=== PATIENT | male | born 1990 | race Caucasian/White ===

== ENCOUNTER 2019-02-27 08:36 | Emergency (ER) | payer OTHER ==
[~2019-02-27] VITALS: Ht 172.7 cm; Wt 63.5 kg
--- NOTE | 2019-02-27 08:43 | NUR ---
Pt ambulated to bed 3.
--- NOTE | 2019-02-27 08:45 | NUR ---
ONE WEEK PTC PT NOTICE BURNING SENSATION UPON URINATING ,DENIES URETHRAL DISCHARGE .NO CONSULT NOR MEDS TAKEN.PT IS AWAKE , ALERT ,AFEBRILE , ABDOMEN SOFT NORMO ACTIVE BS, NO TENDERNESS NOTED. AMBULATORY WITH STEADY GAIT.DENIES HX PREVIOUS ILLNESS NOR MEDS TAKEN.
[2019-02-27 08:47] VITALS: BP 139/87
--- NOTE | 2019-02-27 08:58 | NUR ---
DR GROVE AT BEDSIDE.
[2019-02-27] MEDS ORDERED: metroNIDAZOLE 250 MG TAB PO ONE (09:05)
[2019-02-27] MEDS ORDERED: cefTRIAXone 250 MG in LIDOCAINE MPF 1% 0.9 ML IM ONE (09:05)
[2019-02-27] MEDS ORDERED: AZITHROMYCIN 250 MG TAB PO ONE (09:05)
[2019-02-27] MEDS ORDERED: cefTRIAXone 250 MG VIAL ONE (09:12)
[2019-02-27] MEDS ORDERED: LIDOCAINE MPF 1% 5 ML ONE (09:12)
[2019-02-27 09:27] LABS: APPEARANCE,URINE HAZY (CLEAR); BILIRUBIN,URINE NEGATIVE (NEGATIVE); BLOOD, URINE TRACE-I (NEGATIVE); COLOR,URINE YELLOW (YELLOW); LEUKOCYTE ESTERASE ,URINE 3+ (NEGATIVE); NITRITE, URINE NEGATIVE (NEGATIVE); UGLUCOSE NEGATIVE (NEGATIVE)
[2019-02-27 09:36] LABS: RBC,URINE 0-5 /HPF (0-5); WBC,URINE 16-25 (MOD) /HPF (0-5)
--- NOTE | 2019-02-27 09:36 | NUR ---
MEDS GIVEN.PT AWAKE , ALERT.
[2019-02-27 10:05] VITALS: BP 114/62
--- NOTE | 2019-02-27 10:05 | NUR ---
Patient discharged with v/s stable. Written and verbal after care instructions given and explained regarding urethritis. Patient alert, oriented and verbalized understanding of instructions. Ambulatory with steady gait. All questions addressed prior to discharge. ID band removed. Patient advised to follow up with PMD. Rx of keflex given. Patient educated on indication of medication including possible reaction and side effects. Opportunity to ask questions provided and answered. pt given excuse from work.
[2019-03-02 08:07] LABS: CHLAMYDIA TRACHOMATIS AMP DNA Negative (Negative)
== END 2019-02-27 10:05 | disposition home or self-care (01) ==
LOC: MED 08:36
DX: N34.2 Other urethritis (principal)
CPT/HCPCS: 36415; 81001; 87086; 87491; 96372; 99283; J0696; J2001